=== PATIENT | male | born 1990 | race Caucasian/White ===

== ENCOUNTER → 2017-11-13 | Outpatient (CLI) | payer OTHER ==
--- NOTE | 2017-11-13 08:44 | DIAGNOSTIC IMAGING REPORT ---
ULTRASOUND OF THE LIVER AND SPLEEN CLINICAL HISTORY: Thrombocytopenia. COMPARISON STUDY: No priors. TECHNIQUE: Real-time, grayscale, and color flow sonography of the liver and spleen is performed. Images are reviewed in the transverse and longitudinal planes. FINDINGS: Spleen: The spleen is enlarged, measuring 15.6 cm in length. The spleen is homogeneous in echotexture. No perisplenic fluid is identified. Liver: The liver is normal in size and homogeneous in echotexture, measuring 15.2 cm in length. There is no intrahepatic biliary ductal dilatation. The main portal vein is patent. Survey images of the gallbladder show cholelithiasis. IMPRESSION: 1. Splenomegaly. 2. The liver is normal in size and echotexture. 3. Cholelithiasis. Electronically signed by: Wyatt Scales M.D. 11/13/2017 8:43 AM Dictated Date/Time: 11/13/2017 8:41 AM
== END | disposition home or self-care (01) ==
LOC: C.ULTRBC 08:17
PROVIDERS: ATTEND Internal Medicine Hematology & Oncology
DX: D69.8 Other specified hemorrhagic conditions (principal)